=== PATIENT | male | born 1965 | race Caucasian/White ===

== ENCOUNTER 2022-09-26 12:43 | Emergency (ER) | payer OTHER ==
[2022-09-26 13:40] LABS: Absolute Lymphocytes (CBC) 1.6 K/uL (0.7-4.9); Hematocrit 34.4 % (39.6-49.0); Lymphocytes % 32.8 % (15.3-44.8); MCV 71.8 fL (80-100)
[2022-09-26 13:59] LABS: ALT/SGPT 22 U/L (16-61); AST/SGOT 21 U/L (15-37); Albumin 3.6 g/dL (3.4-5.0); Alkaline Phosphatase 99 U/L (45-117); BUN Blood Urea Nitrogen 35 mg/dL (7-18); Bicarbonate 30 mEq/L (21-32); Bilirubin Direct 0.2 mg/dL (0-0.2); Bilirubin Indirect, Calculated 0.7 mg/dL (0.2-0.8); Bilirubin Total 0.9 mg/dL (0.2-1.0); Glomerular Filtration Rate 69 ml/min (=/>90); Glucose Level 103 mg/dL (74-106); Potassium 2.8 mEq/L (3.5-5.1); Protein, Total 7.6 g/dL (6.4-8.2); Sodium Level 137 mEq/L (136-145)
[2022-09-26 14:24] LABS: Protime INR 1.08
--- NOTE | 2022-09-26 15:16 | RAD REPORT ---
EXAM DESCRIPTION: CT - Neck Angio - 09/26/2022 2:17 pm CLINICAL HISTORY: ligation injury COMPARISON: No comparisons TECHNIQUE: Axial CT angiography images of the head was performed with multiplanar and maximum intens ity projection reconstructions. Images performed following intravenous administration of 100mL Isovue 370. All CT scans are performed using dose optimization technique as appropriate and may include automated exposure control or mA/KV adjustment according to patient size. Quantification of carotid stenosis, if any, is performed according to NASCET criteria. FINDINGS: A left aortic arch is identified with normal three vessel configuration of the great vesse ls. No significant flow abnormality is seen of the common carotid bilaterally. Mild burden of predominantly noncalcified atherosclerotic plaque along the proximal IAC's, with no significant stenosis identified involving the cervical segments of both internal carotid arteries. Normal flow is seen within both vertebral arteries apart from focal mild stenosis of the left vertebr al artery within the foramen at C4-5 level. Multilevel pronounced cervical spine degenerative changes with a sizable posterior disc extrusion at C3-4, with associated calcification along the left aspect of the posterior longitudinal ligament, fin dings which contribute to at least moderate central canal stenosis at and above C3-4 level. Variable degrees of neural foraminal narrowing spanning C3-C7 bilaterally, with up to severe stenosis at some levels. IMPRESSION: No significant flow abnormality of the carotid arteries is identified. Focal mild left V2 stenosis at C4-5 level. Multilevel cervical spine degenerative changes, with at least moderate central canal stenosis opposit e C3-4 and multilevel neural foraminal narrowing. CAROTID STENOSIS REFERENCE USING NASCET CRITERIA: % ICA stenosis = (1 - narrowest ICA diameter/diameter of distal cervical ICA) x 100. Mild - <50% stenosis. Moderate - 50-69% stenosis. Severe - 70-94% stenosis. Near occlusion - 95-99% stenosis. Occluded - 100% stenosis.
--- NOTE | 2022-09-26 15:26 | EDPHYS ---
Physician Documentation [facility] Name: Tyler Cantor Age: 57 yrs Sex: Male : 1965 Arrival Date: 09/26/2022 Time: 12:43 Bed 19 Private MD: ED Physician Max Bolton HPI: 09/26 18:20 This 57 yrs old Male presents to ER via EMS with complaints of Neck Pain, <24hrs Old, rt Suicidal Ideation. 18:20 Patient presents to the ED with neck pain after he tried to hang himself with a rt bedsheet. Denies loss of consciousness, head trauma. Denies other acute complaints at this time including difficulty breathing. Symptoms are aching nature, nonradiating, moderate severity, no other aggravating alleviating factors.. Historical: - Allergies: 13: No Known Allergies; bp - Home Meds: : sertraline oral [Active]; bp - PMHx: 13:01 Hypertensive disorder; Diabetes mellitus; Depressive disorder; Anxiety; bp - Immunization history:: Adult Immunizations up to date. - Social history:: Smoking status: Patient denies any tobacco usage or history of. - Family history:: not pertinent. ROS: 18:20 Constitutional: Negative for fever, chills, and weight loss, Cardiovascular: Negative rt for chest pain, palpitations, and edema, Respiratory: Negative for shortness of breath, cough, wheezing, and pleuritic chest pain, Abdomen/GI: Negative for abdominal pain, nausea, vomiting, diarrhea, and constipation, MS/Extremity: Negative for injury and deformity, Skin: Negative for injury, rash, and discoloration, Neuro: Negative for headache, weakness, numbness, tingling, and seizure. 18:20 ENT: Positive for 18:20 Neck: Positive for pain at rest, Negative for swelling. 18:20 Psych: Positive for homicidal ideation, suicidal ideation. Exam: 18:20 Constitutional: This is a well developed, well nourished patient who is awake, alert, rt and in no acute distress. Head/Face: Normocephalic, atraumatic. Chest/axilla: Normal chest wall appearance and motion. Nontender with no deformity. No lesions are appreciated. Cardiovascular: Regular rate and rhythm with a normal S1 and S2. No gallops, murmurs, or rubs. Normal PMI, no JVD. No pulse deficits. Respiratory: Lungs have equal breath sounds bilaterally, clear to auscultation and percussion. No rales, rhonchi or wheezes noted. No increased work of breathing, no retractions or nasal flaring. Abdomen/GI: Soft, non-tender, with normal bowel sounds. No distension or tympany. No guarding or rebound. No evidence of tenderness throughout. Skin: Warm, dry with normal turgor. Normal color with no rashes, no lesions, and no evidence of cellulitis. MS/ Extremity: Pulses equal, no cyanosis. Neurovascular intact. Full, normal range of motion. Neuro: Awake and alert, GCS 15, oriented to person, place, time, and situation. Cranial nerves II-XII grossly intact. Motor strength 5/5 in all extremities. Sensory grossly intact. Cerebellar exam normal. Normal gait. 18:20 Neck: Abrasions noted to the anterior neck, no swelling, no bruits, trachea is midline, no crepitus. 18:20 ECG was reviewed by the Attending Physician. Vital Signs: 13:00 BP 140 / 80; Pulse 80; Resp 16; Temp 98; Pulse Ox 99% on R/A; bp 13:03 BP 145 / 71; Pulse 66; Resp 18; Pulse Ox 96% on R/A; Pain 0/10; ld1 13:49 BP 124 / 70; Pulse 59; Resp 16; Pulse Ox 95% on R/A; ld1 14:34 BP 118 / 78; Pulse 64; Resp 18; Pulse Ox 96% on R/A; ld1 15:58 BP 126 / 79; Pulse 84; Resp 18; Pulse Ox 100% on R/A; ld1 13:03 Pain Scale: Adult ld1 MDM: 12:56 Patient medically screened. rt 18:20 Differential diagnosis: Bony injury, vascular injury, abrasion, aerodigestive injury. rt Data reviewed: vital signs, nurses notes, lab test result(s), EKG, radiologic studies. Independent interpretation of the following test(s) in the Emergency Department CT Scan: My interpretation is No fracture seen on my interpretation of the x-ray images. Counseling: I had a detailed discussion with the patient and/or guardian regarding: the historical points, exam findings, and any diagnostic results supporting the discharge/admit diagnosis, lab results, radiology results, the need for outpatient follow up. 09/26 13:09 Order name: Acetaminophen; Complete Time: 15:20 rt 09/26 13:09 Order name: Basic Metabolic Panel; Complete Time: 15:20 rt 09/26 13:09 Order name: CBC with Diff; Complete Time: 15:20 rt 09/26 13:09 Order name: ETOH Level; Complete Time: 15:20 rt 09/26 13:09 Order name: Hepatic Function; Complete Time: 15:20 rt 09/26 13:09 Order name: PT-INR; Complete Time: 15:20 rt 09/26 13:09 Order name: Ptt, Activated; Complete Time: 15:20 rt 09/26 13:09 Order name: Salicylate; Complete Time: 15:20 rt 09/26 13:09 Order name: CT Neck Angio; Complete Time: 15:20 rt 09/26 13:09 Order name: EKG; Complete Time: 13:10 rt 09/26 13:09 Order name: EKG - Nurse/Tech; Complete Time: 13:42 rt 09/26 13:09 Order name: IV Saline Lock; Complete Time: 13:27 rt 09/26 13:09 Order name: Labs collected and sent; Complete Time: : rt 09/26 13:09 Order name: Suicide Screening ([place]); Complete Time: 13:30 rt EC:20 Rate is 62 beats/min. Rhythm is regular, Normal Sinus Rhythm with Occasional PVCs. QRS rt [place] is Normal. PA interval is normal. QRS interval is normal. QT interval is normal. No Q waves. T waves are Normal. No ST changes noted. Interpreted by me. Administered Medications: 15:58 Drug: Potassium Chloride PO Liquid 40 mEq Route: PO; ld1 Disposition Summary: 09/26/22 15:25 Discharge Ordered Location: Home rt Problem: new rt Symptoms: are unchanged rt Condition: Stable rt Diagnosis - Suicide attempt rt - Suicide attempt by hanging rt - Hypokalemia rt Followup: rt - With: Private Physician - When: 2 - 3 days - Reason: Discharge Instructions: - Discharge Summary Sheet rt - Suicidal Feelings: How to Help Yourself rt Forms: - Medication Reconciliation Form rt - Thank You Letter rt - Antibiotic Education rt - Prescription Opioid Use rt - [email or web address] rt Prescriptions: - Potassium Chloride 20 meq Oral Packet - take 1 packet by ORAL route once daily 1 packet in 6 (six) ounces of water or rt juice; Take after meal; 5 packet; Refills: 0, Product Selection Permitted Signatures: Dispatcher [employer] Derrek Cadena RN RN Jadyn Bridges RN RN ld1 Max Bolton MD MD rt
--- NOTE | 2022-09-26 15:26 | ER ---
Nurse's Notes [facility] Name: Tyler Cantor Age: 57 yrs Sex: Male : 1965 Arrival Date: 09/26/2022 Time: 12:43 Bed 19 Private MD: Diagnosis: Suicide attempt;Suicide attempt by hanging;Hypokalemia Presentation: 09/26 13:00 Chief complaint: EMS states: ATTEMPTED HANGING AT [facility]. Coronavirus screen: bp At this time, the client does not indicate any symptoms associated with coronavirus-19. Ebola Screen: No symptoms or risks identified at this time. Initial Sepsis Screen: Does the patient meet any 2 criteria? No. Patient's initial sepsis screen is negative. Does the patient have a suspected source of infection? No. Patient's initial sepsis screen is negative. Risk Assessment: Do you want to hurt yourself or someone else? Patient reports no desire to harm self or others. Onset of symptoms is unknown. Care prior to arrival: Cervical collar in place. IV initiated. 20 GA, in the left antecubital area. 13:00 Method Of Arrival: EMS: [facility] bp 13:00 Acuity: PAULA 3 bp Triage Assessment: 13:01 General: Appears in no apparent distress. Behavior is calm, cooperative, appropriate bp for age. Pain: Complains of pain in neck. EENT: No deficits noted. Neuro: No deficits noted. Cardiovascular: No deficits noted. Respiratory: Airway is patent Respiratory effort is even, unlabored. GI: No signs and/or symptoms were reported involving the gastrointestinal system. : No signs and/or symptoms were reported regarding the genitourinary system. Derm: No deficits noted. Musculoskeletal: No deficits noted. Injury Description: SUPERFICIAL LIGATURE GIBSON TO NECK. Historical: - Allergies: 13:01 No Known Allergies; bp - Home Meds: 13:01 sertraline oral [Active]; bp - PMHx: 13:01 Hypertensive disorder; Diabetes mellitus; Depressive disorder; Anxiety; bp - Immunization history:: Adult Immunizations up to date. - Social history:: Smoking status: Patient denies any tobacco usage or history of. - Family history:: not pertinent. Screenin:03 [facility] ED Fall Risk Assessment (Adult) History of falling in the last 3 months, ld1 including since admission No falls in past 3 months (0 pts). Abuse screen: Denies threats or abuse. Denies injuries from another. Nutritional screening: No deficits noted. Tuberculosis screening: No symptoms or risk factors identified. Assessment: 13:03 Reassessment: See triage assessment. Pain: Denies pain. Neuro: Level of Consciousness ld1 is awake, alert, obeys commands, Oriented to person, place, time, situation. 16:31 Reassessment: Pt uncooperative - jailers, PD, ERP, charge nurse, staff at bedside ld1 assisting with patient. Pt refusing to walk to transport van. Vital Signs: 13:00 BP 140 / 80; Pulse 80; Resp 16; Temp 98; Pulse Ox 99% on R/A; bp 13:03 BP 145 / 71; Pulse 66; Resp 18; Pulse Ox 96% on R/A; Pain 0/10; ld1 13:49 BP 124 / 70; Pulse 59; Resp 16; Pulse Ox 95% on R/A; ld1 14:34 BP 118 / 78; Pulse 64; Resp 18; Pulse Ox 96% on R/A; ld1 15:58 BP 126 / 79; Pulse 84; Resp 18; Pulse Ox 100% on R/A; ld1 13:03 Pain Scale: Adult ld1 ED Course: 12:52 Patient arrived in ED. ds4 12:53 Max Bolton MD is Attending Physician. rt 13:01 Triage completed. bp 13:01 Arm band placed on. bp 13:03 Patient has correct armband on for positive identification. Placed in gown. Bed in low ld1 position. Call light in reach. Side rails up X2. technical solutions director on. Pulse ox on. NIBP on. Door closed. Noise minimized. Warm blanket given. 13:03 No provider procedures requiring assistance completed. Maintain EMS IV. Dressing ld1 intact. Good blood return noted. Site clean \T\ dry. Gauge \T\ site: 20G LAC. 13:09 Jadyn Brdiges, WHITNEY is Primary Nurse. ld1 14:17 CT Neck Angio In Process Unspecified. EDMS 16:14 IV discontinued, intact, bleeding controlled, No redness/swelling at site. ld1 Administered Medications: 15:58 Drug: Potassium Chloride PO Liquid 40 mEq Route: PO; ld1 Medication: 13:03 VIS not applicable for this client. ld1 Outcome: 15:25 Discharge ordered by . rt 16:13 Discharged to Law Enforcement ld1 16:13 Condition: stable 16:13 Discharge instructions given to patient, police, Instructed on discharge instructions, follow up and referral plans. medication usage, Demonstrated understanding of instructions, follow-up care, medications, Prescriptions given X 1. 16:32 Patient left the ED. ld1 Signatures: Dispatcher [employer] EDMS Mike Carvajal ds4 Derrek Hinds RN RN Jadyn Castillo RN RN ld1 Max Bolton MD MD rt
[2022-09-26] MEDS ORDERED: POTASSIUM CL SA 10 MEQ TAB PO ONE (16:00)
[2022-09-26 16:38] VITALS: TEMP 98
[2022-09-26 16:44] VITALS: BP 126/79; O2SAT 100
--- NOTE | 2022-09-26 20:33 | EKG ---
Test Date: 2022-09-26 Test Time: 13:33:36 Contact Lens Manufacturer: JESSICA MEASUREMENT RESULTS: Intervals: Rate: 62 WA: 238 QRSD: 124 QT: 472 QTc: 479 [place]: P: 77 WA: 238 QRS: 29 T: 18 INTERPRETIVE STATEMENTS: Sinus rhythm with 1st degree AV block with occasional premature ventricular complexes Otherwise normal ECG No previous ECG available for comparison Electronically Signed On 09-26-22 20:32:31 CDT by Adams Abraham
== END 2022-09-26 16:32 | disposition home or self-care (01) ==
LOC: ER 12:43
DX: S10.94XA External constriction of unspecified part of neck, initial encounter (principal); X83.8XXA Intentional self-harm by other specified means, initial encounter; Y92.149 Unspecified place in prison as the place of occurrence of the external cause; F32.A Depression, unspecified
CPT/HCPCS: 93005; 85025; 80048; 36415; 85610; 80076; 85730; 70498; 80143; 80179; 82077; Q9967